=== PATIENT | female | born 1940 | race Caucasian/White ===

== ENCOUNTER 2018-11-30 22:07 | Emergency (ER) | payer MEDICARE, OTHER ==
[~2018-11-30] VITALS: Ht 162.6 cm; Wt 74.4 kg
--- OUTSIDE RECORDS SUMMARY | ~2018-11-30 | XMS | Encounter Summary ---
Demographics + + + | Address | [address] | | | [place] [address] | + + + | Home Phone | | + + + | Preferred Language | Unknown | + + + | Marital Status | | + + + | Scientology Affiliation | Unknown | + + + | Race | Unknown | + + + | Ethnic Group | Unknown | + + + Author + + + | Author | [facility] | | | and [place] | + + + | Organization | [facility] | | | and [place] | + + + | Address | Unknown | + + + | Phone | Unavailable | + + + Support + + +---------+ + | Name | Relationship | Address | Phone | + + +---------+ + | Noman Villeda | SATHISH | Unknown | | + + +---------+ + Care Team Providers + +------+ + | Care Pockets And Pieces Necktie Operator Name | Role | Phone | + +------+ + | Christopher Benz DO | PCP | | + +------+ + Reason for Visit Auth/Cert +--------+--------+ + + + + | Status | Reason | Specialty | Diagnoses / | Referred By | Referred To | | | | | Procedures | Contact | Contact | +--------+--------+ + + + + | | | | Diagnoses | | Noris | | | | | Combined | | Thai | | | | | forms of | | MD Evan | | | | | age-related | | [address] | | | | | cataract of | | [place] | | | | | right eye | | [place] | | | | | Combined | | [id number] Phone: | | | | | forms of | | [phone] | | | | | age-related | | Fax: | | | | | cataract of | | [phone] | | | | | right eye | | | | | | | [[id number]] | | | | | | | Procedures | | | | | | | [place] [facility] | | | | | | | CATARACT | | | | | | | EXTRACAP,INS | | | | | | | ERT LENS | | | | | | | RIGHT | | | | | | | EXTRACTION | | | | | | | CATARACT | | | | | | | WITH OR | | | | | | | WITHOUT LENS | | | | | | | IMPLANT | | | +--------+--------+ + + + + Encounter Details +--------+---------+ + + + | Date | Type | Department | Care Team | Description | +--------+---------+ + + + | 11/29/ | Surgery | [facility] | [facility] | RIGHT EXTRACTION | | 2018 | | [facility] | MD Evan [address] | CATARACT WITH LENS | | | | [address] | [place] | IMPLANT | | | | [place] | [place] [address] | | | | | [phone] | [phone] | | | | | [phone] | | | +--------+---------+ + + + Social History + + + +--------+ + | Tobacco Use | Types | Packs/Day | Years | Date | | | | | Used | | + + + +--------+ + | Former Smoker | Cigarettes | 1 | 20 | Quit: 1985 | + + + +--------+ + + +---+---+---+ | Smokeless Tobacco: | | | | | Never Used | | | | + +---+---+---+ + + +---------+ + | Alcohol Use | Drinks/We | oz/Week | Comments | | | ek | | | + + +---------+ + | Yes | 5 | 3.0 | | | | Glasses | | | | | of wine | | | + + +---------+ + + + + | Sex Assigned at | Date Recorded | | | | + + + | Not on file | | + + + + + + + | Job Start Date | Occupation | Industry | + + + + | Not on file | Not on file | Not on file | + + + + + + + + | Travel History | Travel Start | Travel End | + + + + + + | No recent travel history available. | + + documented as of this encounter Last Filed Vital Signs + + + + | Vital Sign | Reading | Time Taken | + + + + | Blood Pressure | 136/70 | 11/29/2018 1053 PDT | + + + + | Pulse | 68 | 11/29/2018 1053 PDT | + + + + | Temperature | 36.5 C (97.7 F) | 11/29/2018 1038 PDT | + + + + | Respiratory Rate | 16 | 11/29/20181052 PDT | + + + + | Oxygen Saturation | 98% | 11/29/20181052 PDT | + + + + | Inhaled Oxygen | - | - | | Concentration | | | + + + + | Weight | 71.1 kg (156 lb 12 | 11/29/2018933 PDT | | | oz) | | + + + + | Height | 162.6 cm (5' 4") | 11/29/2018933 PDT | + + + + | Body Mass Index | 26.91 | 11/29/2018933 PDT | + + + + documented in this encounter Discharge Instructions Instructions Christi Becerra RN - 11/29/2018FOLLOWING SURGERY: Wear the patch and shield until you get home or until your first post-op appointment, if same day. You may then discard the patch, but continue to wear the eye shield as noted joyce oh. Do not drive for at least 24 hours (longer if vision isn't clear enough to be safe) If prescribed the following eyedrops to use after surgery, then use as follows: Prednisolone acetate 1% - Shake well before using. Place 1 drop in your surgery ey e 4 times daily and continue for 1 month after surgery. Ofloxacin 0.3% - Place 1 drop in your surgery eye 4 times daily and continue for 1 week after surgery. Close your eye for 3-5 minutes after each eye drop. If your surgery eye has a dry, irritated, or "foreign body" sensation, you may use cold compresses or preservative free artificial tears (in individual vials) as needed. Drink water to stay well-hydrated and to promote healing. Most people need 8 glasses of water daily. Use your preferred non-prescription pain medicine as needed for mild discomfort. You will have appointments with your eye doctor as scheduled in future weeks/months. Darlene ng any eye drops you are taking to your first post-op appointment. THE FIRST DAYS AFTER SURGERY: The first few days are the most important after eye surgery t o be sure the eye heals well. Listed below are some things you should do or avoid doing: You may bend over, sleep on either side, read, go out to dinner, and resume most of your normal activities. Walking and gentle exercises are OK. Avoid strenuous activity for the first 3 days. Keep your eye clean with gentle lid scrubs and avoid wearing makeup for 3 days. Wear the eye shield for the first 3-4 nights to keep from bumping the eye while you are sleeping. Do not rub your eye. If you have an urge to rub your eye, wear the eye shield and ken nue using it when sleeping for even the first week after surgery. Avoid dry, daysi or dirty environments for at least 3 days. You may shower, but keep you eye dry for 3 days. Avoid dunking your head under water. Avoid splashing your face or dunking your head under water for 3 days. You may shower, k eeping your eye dry. No swimming, water sports, Jacuzzi, spa, or pool for 1 week. EXPECTATIONS: You may experience strange sensations after surgery, such as numbness, halos around lights, blurred and/or double vision. These usually resolve in 2-6 hours. Your visi on will improve over time as your eye heals, but may fluctuate over the first few weeks. Re dness will usually be gone within a few weeks. A mild dry eye sensation may persist for jose manuel e months. IMPORTANT! If you have the following symptoms, immediately call your eye doctor or [facility] at (dial "9" after hours or on weekends): Bleeding or discharge from the eye. Vision suddenly becomes worse. Huge increase in floaters. Flashing lights or a curtain over part of or all of your vision. Severe pain not relieved by the pain reliever you've been instructed to take. Nausea, vomiting, chills, or fever over 100.4. documented in this encounter Medications at Time of Discharge + + + +---------+--------+ + | Medication | Sig | Dispensed | Refills | Start | End Date | | | | | | Date | | + + + +---------+--------+ + | AMLODIPINE | Take 5 mg by mouth | | 0 | | | | BESYLATE PO | nightly. | | | | | + + + +---------+--------+ + | ATORVASTATIN | Take 10 mg by mouth | | 0 | | | | CALCIUM PO | Daily. | | | | | + + + +---------+--------+ + | calcium, as | Take 600 mg by mouth | | 0 | | | | carbonate, | daily (with | | | | | | (CALTRATE) 600 mg | breakfast). | | | | | | tablet | | | | | | + + + +---------+--------+ + | cetirizine | Take 10 mg by mouth | | 0 | | | | (ZYRTEC) 10 mg | Daily. | | | | | | tablet | | | | | | + + + +---------+--------+ + | Cholecalciferol | Take 4,000 Units by | | 0 | | | | (VITAMIN D PO) | mouth Daily. | | | | | + + + +---------+--------+ + | Denosumab (PROLIA | Inject under the | | 0 | | | | SC) | skin. | | | | | + + + +---------+--------+ + | IP PANEL | Take 2 tablets by | | 0 | | | | LISINOPRIL 20 MG | mouth Daily. | | | | | | PLUS HCTZ 12.5MG | | | | | | + + + +---------+--------+ + | METFORMIN HCL PO | Take 1,000 mg by | | 0 | | | | | mouth 2 times daily. | | | | | + + + +---------+--------+ + | Multiple | Take 1 tablet by | | 0 | | | | Vitamins-Minerals | mouth 2 times daily. | | | | | | (PRESERVISION AREDS | | | | | | | PO) | | | | | | + + + +---------+--------+ + | OMEPRAZOLE PO | Take 20 mg by mouth | | 0 | | | | | Daily. | | | | | + + + +---------+--------+ + | OXYBUTYNIN | Take 5 mg by mouth | | 0 | | | | CHLORIDE ER PO | Daily. | | | | | + + + +---------+--------+ + | Psyllium | Take 2 tablets by | | 0 | | | | (METAMUCIL PO) | mouth Daily. | | | | | + + + +---------+--------+ + | tamsulosin | Take 0.4 mg by mouth | | 0 | | | | (FLOMAX) 0.4 mg CAPS | daily (after | | | | | | | breakfast). | | | | | + + + +---------+--------+ + documented as of this encounter Plan of Treatment Not on filedocumented as of this encounter Procedures + +--------+ + + + | Procedure Name | Priori | Date/Time | Associated Diagnosis | Comments | | | ty | | | | + +--------+ + + + | EXTRACTION CATARACT | | 11/29/2018 | Combined forms of | | | WITH OR WITHOUT LENS | | 11:57 PDT | age-related cataract | | | IMPLANT | | | of right eye | | + +--------+ + + + | ECG 12 LEAD | Routin | 11/29/2018 | | Results for this | | | e | 10:40 PDT | | procedure are in the | | | | | | results section. | + +--------+ + + + | POC GLUCOSE | Routin | 11/29/2018 | | Results for this | | | e | 9:57 PDT | | procedure are in the | | | | | | results section. | + +--------+ + + + documented in this encounter Results ECG 12 lead (11/29/2018 10:40 PDT) + + + + + + | Component | Value | Ref Range | Performed | Pathologist | | | | | At | Signature | + + + + + + | VENTRICULAR | 61 | BPM | [facility] | | | RATE EKG | | | | | + + + + + + | ATRIAL RATE | 300 | BPM | [facility] | | + + + + + + | QRS | 84 | ms | [facility] | | | DURATION | | | | | + + + + + + | Q-T | 396 | ms | [facility] | | | INTERVAL | | | | | + + + + + + | Q-T | 398 | ms | [facility] | | | INTERVAL | | | | | | (CORRECTED) | | | | | + + + + + + | QRS AXIS | 43 | degrees | [facility] | | + + + + + + | T AXIS | -7 | degrees | [facility] | | + + + + + + | INTERPRETAT | Atrial flutter with | | [facility] | | | ION TEXT | variable AV | | | | | | blockNonspecific ST | | | | | | abnormalityAbnormal | | | | | | ECGNo previous ECGs | | | | | | availableConfirmed by | | | | | | SHEFALI JOY MD ([id number]) | | | | | | on 11/30/2018 6:20:36 AM | | | | + + + + + + + + | Specimen | + + | | + + + + + | Narrative | Performed At | + + + | | | + + + + +---------+ + + | Performing | Address | City/State/Zipcode | Phone Number | | Organization | | | | + +---------+ + + | [facility] | | | | + +---------+ + + POC Glucose (11/29/2018 9:57 PDT) + +---------+ + + + | Component | Value | Ref Range | Performed | Pathologist | | | | | At | Signature | + +---------+ + + + | Glucose, | 148 (H) | 70 - 109 mg/dL | [facility] | | [facility] | [facility] | [facility] - | | | | | | [facility] | | + +---------+ + + + + + | Specimen | + + | Blood | + + + + + + + | Performing | Address | City/State/Zipcode | Phone Number | | Organization | | | | + + + + + | [facility] | [address] | [place] | [phone] | | [facility] | | [address] | | | - LABORATORY | | | | + + + + + documented in this encounter Visit Diagnoses + + | Diagnosis | + + | Combined forms of age-related cataract of right eye Other and combined forms of | | senile cataract | + + documented in this encounter Administered Medications + +--------+---------+------+------+------+ | Medication Order | MAR | Action | Dose | Rate | Site | | | Action | Date | | | | + +--------+---------+------+------+------+ + +---+ | albuterol 2.5 mg/3 mL nebulizer | | | solution 2.5 mg 2.5 mg, | | | Nebulization, ONCE PRN, Wheezing, | | | Starting 11/29/18 at 0934, | | | For 1 dose, RT will administer., | | | Pre-op | | + +---+ | | | + +---+ | albuterol 2.5 mg/3 mL nebulizer | | | solution 2.5 mg 2.5 mg, | | | Nebulization, ONCE PRN, Wheezing, | | | Starting Tue11/29/18 at 1049, | | | For 1 dose, Notify anesthesia if | | | patient is wheezing and does not | | | have a history of asthma or COPD | | | or current smoking., | | | Recovery/Phase I | | + +---+ | | | + +---+ | albuterol 2.5 mg/3 mL nebulizer | | | solution 2.5 mg 2.5 mg, | | | Nebulization, ONCE PRN, Wheezing, | | | Starting Tue11/29/18 at 1049, | | | For 1 dose, Notify anesthesia if | | | patient is wheezing and does not | | | have a history of asthma or COPD | | | or current smoking., | | | Recovery/Phase I | | + +---+ | | | + +---+ + +-------+ + +---+ + | balanced salts sterile | Given | 11/30/19 | 1 | | Surgical | | ophthalmic irrigation solution | | 19 10:27 | Applicat | | Site | | PRN, Starting Tue11/29/18 at | | PDT | ion | | | | 1027, Intra-op | | | | | | + +-------+ + +---+ + +---+---+ | | | +---+---+ + +-------+ +-------+---+ + | BSS 2.25mL + lidocaine PF 2% | Given | 11/30/19 | 4 mLs | | Surgical | | 0.75mL + EPINEPHrine (1:1000) 1mL | | 19 10:27 | | | Site | | one step ophthalmic solution | | PDT | | | | | PRN, Starting Tue11/29/18 at | | | | | | | 1027, Intra-op | | | | | | + +-------+ +-------+---+ + + +---+ | | | + +---+ | dextrose 50% injection 12.5-25 | | | g 12.5-25 g, Intravenous, EVERY | | | 15 MIN PRN, Low Blood Sugar, Give | | | 12.5g (25 mL) IV if blood | | | glucose 50-69 mg/dL. Give 25g | | | (50 mL) IV if blood glucose < 50, | | | Starting 11/29/18 at 0934, | | | Repeat in 15 min if blood glucose | | | remains < 70 mg/dL. Repeat | | | blood glucose in 30 min once | | | blood glucose > 70., Pre-op | | + +---+ | | | + +---+ | dextrose 50% injection 12.5-25 | | | g 12.5-25 g, Intravenous, EVERY | | | 15 MIN PRN, Low Blood Sugar, For | | | hypoglycemia. Give 12.5g (25ml) | | | IV if blood glucose 50-69 | | | mg/dL. Give 25g (50ml) IV if | | | blood glucose < 50, Starting Wed | | | 11/29/18 at 1049, Give over 2 min. | | | Repeat in 15 min if blood | | | glucose remains < 70 mg/dL. | | | Repeat blood glucose in 30 min | | | once blood glucose > 70., | | | Recovery/Phase I | | + +---+ | | | + +---+ | dextrose 50% injection 12.5-25 | | | g 12.5-25 g, Intravenous, EVERY | | | 15 MIN PRN, Low Blood Sugar, For | | | hypoglycemia. Give 12.5g (25ml) | | | IV if blood glucose 50-69 | | | mg/dL. Give 25g (50ml) IV if | | | blood glucose < 50, Starting Wed | | | 11/29/18 at 1049, Give over 2 min. | | | Repeat in 15 min if blood | | | glucose remains < 70 mg/dL. | | | Repeat blood glucose in 30 min | | | once blood glucose > 70., | | | Recovery/Phase I | | + +---+ | | | + +---+ | fentaNYL (PF) injection 25-50 | | | mcg 25-50 mcg, Intravenous, | | | EVERY 15 MIN PRN, Pain, Give on | | | direction of physician, Starting | | | 11/29/18 at 0934, For 4 doses, | | | Max total dose 100 mcg., Pre-op | | + +---+ | | | + +---+ | fentaNYL (PF) injection 25-50 | | | mcg 25-50 mcg, Intravenous, | | | EVERY 5 MIN PRN, Pain, Starting | | | 11/29/18 at 1049, Maximum | | | total dose 250 mcg. PACU IV | | | Narcotic Priority: Only use | | | fentanyl for immediate post-op | | | pain (one dose) or breakthrough | | | pain when any other IV narcotics | | | ordered have been ineffective (if | | | ordered). If both morphine and | | | hydromorphone are ordered, use | | | morphine first, and use | | | hydromorphone if morphine | | | ineffective., Recovery/Phase I | | + +---+ | | | + +---+ | fentaNYL (PF) injection 25-50 | | | mcg 25-50 mcg, Intravenous, | | | EVERY 5 MIN PRN, Pain, Starting | | | Tue11/29/18 at 1049, Maximum | | | total dose 250 mcg. PACU IV | | | Narcotic Priority: Only use | | | fentanyl for immediate post-op | | | pain (one dose) or breakthrough | | | pain when any other IV narcotics | | | ordered have been ineffective (if | | | ordered). If both morphine and | | | hydromorphone are ordered, use | | | morphine first, and use | | | hydromorphone if morphine | | | ineffective., Recovery/Phase I | | + +---+ | | | + +---+ + +-------+ +-------+---+ + | hyaluronate & chondroitin | Given | 11/30/19 | 1 kit | | Surgical | | hyaluronate (DUOVISC) intraocular | | 19 10:27 | | | Site | | kit PRN, Starting 11/29/18 | | PDT | | | | | at 1027, Intra-op | | | | | | + +-------+ +-------+---+ + + +---+ | | | + +---+ | HYDROmorphone (DILAUDID) | | | injection 0.2-0.5 mg 0.2-0.5 mg, | | | Intravenous, EVERY 5 MIN PRN, | | | Pain, Starting Tue11/29/18 at | | | 1049, Maximum total dose 4 mg. | | | PACU IV Narcotic Priority: Only | | | use fentanyl for immediate | | | post-op pain (one dose) or | | | breakthrough pain when any other | | | IV narcotics ordered have been | | | ineffective (if ordered). If | | | both morphine and hydromorphone | | | are ordered, use morphine first, | | | and use hydromorphone if morphine | | | ineffective., Recovery/Phase I | | + +---+ | | | + +---+ | HYDROmorphone (DILAUDID) | | | injection 0.2-0.5 mg 0.2-0.5 mg, | | | Intravenous, EVERY 5 MIN PRN, | | | Pain, Starting Tue11/29/18 at | | | 1049, Maximum total dose 4 mg. | | | PACU IV Narcotic Priority: Only | | | use fentanyl for immediate | | | post-op pain (one dose) or | | | breakthrough pain when any other | | | IV narcotics ordered have been | | | ineffective (if ordered). If | | | both morphine and hydromorphone | | | are ordered, use morphine first, | | | and use hydromorphone if morphine | | | ineffective., Recovery/Phase I | | + +---+ | | | + +---+ + +---------+ +---+-------+---+ | lactated ringers (LR) infusion | New Bag | 11/30/19 | | 100 | | | at 10-100 mL/hr, Intravenous, | | 19 9:58 | | mL/hr | | | CONTINUOUS, Starting 11/29/18 | | PDT | | | | | at 1000, TKO., Pre-op | | | | | | + +---------+ +---+-------+---+ +---+---+ | | | +---+---+ + +-------+ +--------+---+---+ | lidocaine (AKTEN) 3.5% | Given | 11/30/19 | 1 drop | | | | ophthalmic gel 1 drop 1 drop, | | 19 9:52 | | | | | Right Eye, Prior to Incision, | | PDT | | | | | Starting 11/29/18 at 0934, For | | | | | | | 2 doses, Begin after | | | | | | | proparacaine. Begin 10 minutes | | | | | | | prior to leaving SDS for | | | | | | | operating room. Repeat jelly just | | | | | | | prior to leaving SDS and Q10 | | | | | | | minutes until in the operating | | | | | | | room. Keep eye closed after | | | | | | | placing medication., Pre-op | | | | | | + +-------+ +--------+---+---+ +---+---+ | | | +---+---+ + +-------+ + +---+ + | lidocaine (XYLOCAINE) 2% jelly | Given | 11/30/19 | 1 | | Surgical | | (uro-jet) PRN, Starting Wed | | 19 10:26 | Applicat | | Site | | 11/29/18 at 1026, Intra-op | | PDT | ion | | | + +-------+ + +---+ + + +---+ | | | + +---+ | meperidine (DEMEROL) injection | | | 12.5-25 mg 12.5-25 mg, | | | Intravenous, PRN, Shivering, | | | Starting 11/29/18 at 1049, For | | | 2 doses, May Repeat once in 5 | | | min., Recovery/Phase I | | + +---+ | | | + +---+ | meperidine (DEMEROL) injection | | | 12.5-25 mg 12.5-25 mg, | | | Intravenous, PRN, Shivering, | | | Starting 11/29/18 at 1049, For | | | 2 doses, May Repeat once in 5 | | | min., Recovery/Phase I | | + +---+ | | | + +---+ | midazolam (VERSED) 1 mg/mL | | | injection 1 mg 1 mg, | | | Intravenous, PRN, Anxiety, May | | | repeat Q 5 minutes prn, Starting | | | 11/29/18 at 0934, For 2 doses, | | | May repeat once in 5min. Hold | | | anxiolytic until after anesthesia | | | and surgical consent is | | | obtained, Pre-op | | + +---+ | | | + +---+ + +-------+ +--------+---+ + | moxifloxacin (VIGAMOX) 0.5 % | Given | 11/30/19 | 0.5 mg | | [facility] | | intracameral injection PRN, | | 19 10:28 | | | t | | Starting Tue11/29/18 at 1028, | | PDT | | | | | Intra-op | | | | | | + +-------+ +--------+---+ + + +---+ | | | + +---+ | ondansetron (ZOFRAN) injection | | | 4 mg 4 mg, Intravenous, ONCE | | | PRN, Nausea, Starting Tue11/29/18 | | | at 0934, For 1 dose, Pre-op | | + +---+ | | | + +---+ | ondansetron (ZOFRAN) injection | | | 4 mg 4 mg, Intravenous, ONCE | | | PRN, Nausea, Starting Tue11/29/18 | | | at 1049, For 1 dose, | | | Recovery/Phase I | | + +---+ | | | + +---+ | ondansetron (ZOFRAN) injection | | | 4 mg 4 mg, Intravenous, ONCE | | | PRN, Nausea, Starting Tue11/29/18 | | | at 1049, For 1 dose, | | | Recovery/Phase I | | + +---+ | | | + +---+ + +-------+ +--------+---+---+ | phenylephrine (GALLO-SYNEPHRINE) | Given | 11/30/19 | 1 drop | | | | 2.5% ophthalmic solution 1 drop | | 19 9:40 | | | | | 1 drop, Right Eye, Prior to | | PDT | | | | | Incision, Starting Tue11/29/18 at | | | | | | | 0934, For 3 doses, Begin after | | | | | | | proparacaine. 1 drop every 10 | | | | | | | minutes for 3 doses. (May | | | | | | | alternate every 5 minutes with | | | | | | | tropicamide) Remind patient to | | | | | | | keep eye closed after placing | | | | | | | each drop., Pre-op | | | | | | + +-------+ +--------+---+---+ +-------+ +--------+---+---+ | Given | 11/30/19 | 1 drop | | | | | 19 9:35 | | | | | | PDT | | | | +-------+ +--------+---+---+ +---+---+ | | | +---+---+ + +-------+ +---------+---+ + | pilocarpine (ISOPTO CARPINE) 1% | Given | 11/30/19 | 2 drops | | Surgical | | ophthalmic solution PRN, | | 19 10:28 | | | Site | | Starting 11/29/18 at 1028, | | PDT | | | | | Intra-op | | | | | | + +-------+ +---------+---+ + +---+---+ | | | +---+---+ + +-------+ +---------+---+ + | povidone-iodine 5 % ophthalmic | Given | 11/30/19 | 2 drops | | Surgical | | solution PRN, Starting Wed | | 19 10:19 | | | Site | | 11/29/18 at 1019, Intra-op | | PDT | | | | + +-------+ +---------+---+ + +---+---+ | | | +---+---+ + +-------+ +--------+---+---+ | proparacaine (ALCAINE) 0.5% | Given | 11/30/19 | 1 drop | | | | ophthalmic solution 1 drop 1 | | 19 9:35 | | | | | drop, Right Eye, Prior to | | PDT | | | | | Incision, Starting 11/29/18 at | | | | | | | 0934, For 1 dose, After placing | | | | | | | anesthetic, keep eye closed | | | | | | | except for when placing | | | | | | | additional medications. All other | | | | | | | drops/gel should follow this | | | | | | | drop., Pre-op | | | | | | + +-------+ +--------+---+---+ +---+---+ | | | +---+---+ + +-------+ +--------+---+ + | triamcinolone acetonide | Given | 11/30/19 | 2.5 mg | | Surgical | | (KENALOG-10) 10 mg/mL injection | | 19 10:28 | | | Site | | PRN, Starting 11/29/18 at | | PDT | | | | | 1028, Intra-op | | | | | | + +-------+ +--------+---+ + +---+---+ | | | +---+---+ + +-------+ +--------+---+---+ | tropicamide (MYDRIACYL) 1% | Given | 11/30/19 | 1 drop | | | | ophthalmic solution 1 drop 1 | | 19 9:40 | | | | | drop, Right Eye, Prior to | | PDT | | | | | Incision, Starting 11/29/18 at | | | | | | | 0934, For 3 doses, Begin after | | | | | | | proparacaine. 1 drop every 10 | | | | | | | minutes for 3 doses. (May | | | | | | | alternate every 5 minutes with | | | | | | | phenylephrine) Remind patient to | | | | | | | keep eye closed after placing | | | | | | | each drop., Pre-op | | | | | | + +-------+ +--------+---+---+ +-------+ +--------+---+---+ | Given | 11/30/19 | 1 drop | | | | | 19 9:35 | | | | | | PDT | | | | +-------+ +--------+---+---+ +---+---+ | | | +---+---+ documented in this encounter
--- OUTSIDE RECORDS SUMMARY | ~2018-11-30 | XMS | Encounter Summary ---
Demographics + + + | Address | [address] | | | [place] [address] | + + + | Home Phone | | + + + | Preferred Language | Unknown | + + + | Marital Status | | + + + | Yarsani Affiliation | Unknown | + + + | Race | Unknown | + + + | Ethnic Group | Unknown | + + + Author + + + | Author | [facility] | | | and [place] | + + + | Organization | [facility] | | | and [...] Team Providers + +------+ + | Care Options Advisor Name | Role | Phone | + [...] | | | | age-related | | [address] | | | | | cataract of | | [place] | | | | | right eye | | [place] | | | | | Combined | | [address] Phone: | | | | | forms of | | [phone] | | | | | age-related | | Fax: | | | | | cataract of | | [phone] | | | | | right eye | | | | | | | [H25.811] | | | | | | | Procedures | | | | | | | SC REMV | | | | | | [...] +--------+--------+ + + + + Encounter Details +--------+ + + + + | Date | Type | Department | Care Team | Description | +--------+ + + + + | 11/29/ | Hospital | [facility] | Thai Hamm | | | 2019 | Encounter | MED CTR OR INTRA OP | MD Evan [address] | | | | | [address] | [place] | | | | | [place] | [place] [address] | | | | | [address] | [phone] | | | | | [phone] | | | +--------+ + + + + Social History + + [...] + | Respiratory Rate | 16 | 11/29/2018 1053 PDT | + + + + | Oxygen Saturation | 98% | 11/29/2018 1053 PDT | + + [...] Discharge Instructions Instructions Christi Becerra RN - 05/15/2019FOLLOWING SURGERY: Wear the patch and shield until you get home or until your first post-op appointment, if same day. You may then discard the patch, but continue to wear the eye shield as noted [place]. Do not drive for at least [...] symptoms, immediately call your eye doctor or [facility] at (dial "9" after hours or on [...] | | | | SHEFALI JOY MD ([id number]) | | | | | | on [...] | | POC | | | [facility] | | | | | | [facility] [...] + + + + + | [facility]. | [address] | [place] | [phone] | | [facility] | | [address] | | | - LABORATORY | | | | + + + + + documented in this encounter Visit Diagnoses Not on filedocumented in this encounter Administered Medications + +--------+---------+------+------+------+ [...] Wheezing, | | | Starting 11/29/18 at 1049, | | | For 1 [...] Wheezing, | | | Starting 11/29/18 at 1049, | | | For 1 [...] | mL/hr | | | CONTINUOUS, Starting Tue11/29/18 | | PDT | | | | [...] PDT | | | | | Starting Tue11/29/18 at 0934, For | | | | [...] | | | | + +-------+ +--------+---+---+ + +---+ | | | + +---+ [...] ONCE | | | PRN, Nausea, Starting 11/29/18 | | | at 0934, For 1 dose, Pre-op | | + +---+ | | | + +---+ | ondansetron (ZOFRAN) injection | | | 4 mg 4 mg, Intravenous, ONCE | | | PRN, Nausea, Starting 11/29/18 | | | at 1049, For 1 dose, | | | Recovery/Phase I | | + +---+ | | | + +---+ | ondansetron (ZOFRAN) injection | | | 4 mg 4 mg, Intravenous, ONCE | | | PRN, Nausea, Starting 11/29/18 | | | at 1049, For 1 [...]
--- OUTSIDE RECORDS SUMMARY | ~2018-11-30 | XMS | Clinical Summary ---
Demographics + + + | Address | [address] | | | [place] [address] | + + + | Home Phone | | + + + | Preferred Language | Unknown | + + + | Marital Status | | + + + | Restoration Affiliation | Unknown | + + + | Race | Unknown | + + + | Ethnic Group | Unknown | + + + Author + + + | Author | [facility] | | | and [place] | + + + | Organization | [facility] | | | [...] Team Providers + +------+ + | Care Yoghurt Maker Name | Role | Phone | + +------+ + | Tuyet Christopher | PP | | + +------+ + Allergies + + + + + + | Active Allergy | Reactions | Severity | Noted | Comments | | | | | Date | | + + + + + + | Ciprofloxacin | Rash | Low | 05/14/20 | | | | | | 19 | | + + + + + + | Nitrofurantoin | Rash | Low | 05/14/20 | | | | | | 19 | | + + + + + + Medications + + + +---------+------+------+-------+ | Medication | Sig | Dispensed | Refills | Star | End | Statu | | | | | | t | Date | s | | | | | | Date | | | + + + +---------+------+------+-------+ | OXYBUTYNIN | Take 5 mg by mouth | | 0 | | | Activ | | CHLORIDE ER PO | Daily. | | | | | e | + + + +---------+------+------+-------+ | OMEPRAZOLE PO | Take 20 mg by mouth | | 0 | | | Activ | | | Daily. | | | | | e | + + + +---------+------+------+-------+ | ATORVASTATIN | Take 10 mg by mouth | | 0 | | | Activ | | CALCIUM PO | Daily. | | | | | e | + + + +---------+------+------+-------+ | Multiple | Take 1 tablet by | | 0 | | | Activ | | Vitamins-Minerals | mouth 2 times daily. | | | | | e | | (PRESERVISION AREDS | | | | | | | | PO) | | | | | | | + + + +---------+------+------+-------+ | METFORMIN HCL PO | Take 1,000 mg by | | 0 | | | Activ | | | mouth 2 times daily. | | | | | e | + + + +---------+------+------+-------+ | Cholecalciferol | Take 4,000 Units by | | 0 | | | Activ | | (VITAMIN D PO) | mouth Daily. | | | | | e | + + + +---------+------+------+-------+ | AMLODIPINE | Take 5 mg by mouth | | 0 | | | Activ | | BESYLATE PO | nightly. | | | | | e | + + + +---------+------+------+-------+ | Psyllium | Take 2 tablets by | | 0 | | | Activ | | (METAMUCIL PO) | mouth Daily. | | | | | e | + + + +---------+------+------+-------+ | calcium, as | Take 600 mg by mouth | | 0 | | | Activ | | carbonate, | daily (with | | | | | e | | (CALTRATE) 600 mg | breakfast). | | | | | | | tablet | | | | | | | + + + +---------+------+------+-------+ | cetirizine | Take 10 mg by mouth | | 0 | | | Activ | | (ZYRTEC) 10 mg | Daily. | | | | | e | | tablet | | | | | | | + + + +---------+------+------+-------+ | tamsulosin | Take 0.4 mg by mouth | | 0 | | | Activ | | (FLOMAX) 0.4 mg CAPS | daily (after | | | | | e | | | breakfast). | | | | | | + + + +---------+------+------+-------+ | IP PANEL | Take 2 tablets by | | 0 | | | Activ | | LISINOPRIL 20 MG | mouth Daily. | | | | | e | | PLUS HCTZ 12.5MG | | | | | | | + + + +---------+------+------+-------+ | Denosumab (PROLIA | Inject under the | | 0 | | | Activ | | SC) | skin. | | | | | e | + + + +---------+------+------+-------+ | LISINOPRIL PO | Take by mouth. | | 0 | | 05/1 | Disco | | | | | | | 4/20 | ntinu | | | | | | | 19 | ed | + + + +---------+------+------+-------+ Active Problems + + + | Problem | Noted Date | + + + | Atrial flutter | 11/29/2018 | + + + | Essential hypertension | 11/29/2018 | + + + | Sleep apnea | 11/29/2018 | + + + + + | Overview: uses CPAP | + + Encounters +--------+ + + + + | Date | Type | Specialty | Care Team | Description | +--------+ + + + + | 11/29/ | Surgery | | Thai Hamm | RIGHT EXTRACTION | | 2018 | | | MD Evan | CATARACT WITH LENS | | | | | | IMPLANT | +--------+ + + + + | 11/29/ | Anesthesia | | Misbah Waters | | | 2018 | Event | | MD Nataly | | +--------+ + + + + | 11/29/ | Hospital | | Thai Hamm | | | 2019 | Encounter | | MD Evan | | +--------+ + + + + from Last 3 Months Social History + + + +--------+ + [...] recent travel history available. | + + Last Filed Vital Signs + + + + | Vital Sign | Reading | Time Taken | + + + + | Blood Pressure | 136/70 | 11/29/20181052 PDT | + + + + | Pulse | 68 | 11/29/20181052 PDT | + + + [...] 11/29/2018933 PDT | + + + + Plan of Treatment + + + + + | Health Maintenance | Due Date | Last Done | Comments | + + + + + | Vaccine: | | | | | Dtap/Tdap/Td (1 - | 2 | | | | Tdap) | | | | + + + + + | Vaccine: Zoster (1 | | | | | of 2) | 3 | | | + + + + + | Vaccine: | | | | | Pneumococcal 65+ | 8 | | | | Low/Medium Risk (1 | | | | | of 2 - PCV13) | | | | + + + + + | Vaccine: Influenza | | | | | (Season Ended) | 9 | | | + + + + + Implants + +--------+--------+ +--------+--------+--------+ | Implanted | Type | Area | Manufacture | Device | Shelf | Model | | | | | r | | Expira | / | | | | | | Identi | tion | Serial | | | | | | fier | Date | / Lot | + +--------+--------+ +--------+--------+--------+ | Lens Tecnis Preloaded Pcb | Generi | Right: | PINON | | 10/25/ | [id number] | | 22.0 - [id number]: | c | Eye | MEDICAL | | 2021 | 0 | | Qty: 1 on 11/29/2018 by | | | [employer] - | | | [id number] | | Thai Hamm MD | | | [place] | | | [address] | | | | | | | | /N/A | + +--------+--------+ +--------+--------+--------+ Procedures + +--------+ + + + | [...] section. | + +--------+ + + + from Last 3 Months Results ECG 12 lead (11/29/2018 10:40 PDT) [...] | | | | SHEFALI JOY MD ([id number]) | | | | | | on [...] (H) | 70 - 109 mg/dL | [facility] | | | POC | | | [facility] | | | | | | MEDICAL [...] | + + + + + | [facility] | [address] | [place] | [phone] | | [facility] | | [address] | | | - LABORATORY | | | | + + + + + from Last 3 Months Insurance + +--------+ +--------+ +---------+--------+ | Payer | Benefi | Subscriber | Effect | Phone | Address | Type | | | t Plan | ID | carol | | | | | | / | | Dates | | | | | | Group | | | | | | + +--------+ +--------+ +---------+--------+ | MEDICARE | MEDICA | [id number] | 10/17/19 | [phone] | | Medica | | | RE | | 08-Pre | 5 | | re | | | PART A | | sent | | | | | | AND B | | | | | | + +--------+ +--------+ +---------+--------+ | [employer] | MUTUAL | [id number] | 11/16/19 | [phone] | | Indemn | | | OF | | 14-Pre | 0 | | ity | | | [place] | | sent | | | | + +--------+ +--------+ +---------+--------+ + +--------+ +--------+ + + | Guarantor Name | Accoun | Relation to | Date | Phone | Billing Address | | | t Type | Patient | of | | | | | | | | | | + +--------+ +--------+ + + | Liz Villeda | Person | Self [birth year] | [address] | | | al/Fam | | 1941 | [phone] | [place] [address] | | | ana | | | 0 (Home) | | + +--------+ +--------+ + + Advance Directives Patient has advance care planning documents, and code status on file. For more information, please contact:[facility] and [place] [id number] + + + + + | Code Status | Date | Date | Comments | | | Activated | Inactivated | | + + + + + | Full Code | 11/29/2018 | 11/29/2018 | | | | 10:49 | 13:10 | | + + + + +
--- OUTSIDE RECORDS SUMMARY | ~2018-11-30 | XMS | Clinical Summary ---
Demographics + + + | Address | [address] | | | [place] [address] | + + + | Home Phone | | + + + | Preferred Language | Unknown | + + + | Marital Status | Single | + + + | Nondenominational Affiliation | Unknown | + + + | Race | Unknown | + + + | Ethnic Group | Other Race | + + + Author + + + | Author | [facility] | + + + | Organization | [facility] | + + + | Address | Unknown | + + + | Phone | Unavailable | + + + Care Team Providers + +------+ + | Care J2Ee Architect Name | Role | Phone | + +------+ + PP | Unavailable | + +------+ + Source Comments BRITTNI is fully live on both [facility] and [facility] InPatient.[facility] Allergies Not on File Medications Not on file Active Problems Not on file Social History + +-------+ +--------+------+ | Tobacco Use | Types | Packs/Day | Years | Date | | | | | Used | | + +-------+ +--------+------+ | Never Assessed | | | | | + +-------+ +--------+------+ + + + | Sex Assigned at [...] recent travel history available. | + + Plan of Treatment + + + + + | Health Maintenance | Due Date | Last Done | Comments | + + + + + | Pneumococcal (Adult) | | | | | (1 of 2 - PCV13) | 8 | | | + + + + + | Influenza (Flu) | | | | | vaccination (Season | 9 | | | | Ended) | | | | + + + + + Results Not on filefrom Last 3 Months Insurance + +--------+ +--------+ + +--------+ | Payer | Benefi | Subscriber | Effect | Phone | Address | Type | | | t Plan | ID | carol | | | | | | / | | Dates | | | | | | Group | | | | | | + +--------+ +--------+ + +--------+ | MEDICARE | MEDICA | xxxxxxxxxx | 10/17/19 | [phone] | [address] | Medica | | | RE A & | | 08-Pre | 1 | [id number] | re | | | B | | sent | | [place] | | | | | | | | [address] | | + +--------+ +--------+ + +--------+ | COMMERCIAL GROUP | COMMER | [id number] | 10/17/19 | | | Indemn | | | CIAL | | 08-Pre | | | ity | | | GROUP | | sent | | | | + +--------+ +--------+ + +--------+ + +--------+ +--------+ + + | Guarantor Name | Accoun | Relation to | Date | Phone | Billing Address | | | t Type | Patient | of | | | | | | | | | | + +--------+ +--------+ + + | Liz Villeda | Person | Self | [birth year] | | [address] | | | al/Fam | | 1941 | [phone] | [place] [address] | | | ana | | | 0 (Home) | | + +--------+ +--------+ + +"
--- OUTSIDE RECORDS SUMMARY | ~2018-11-30 | XMS | Encounter Summary ---
Demographics + + + | Address | [address] | | | [place] [address] | + + + | Home Phone | | + + + | Preferred Language | Unknown | + + + | Marital Status | Single | + + + | Mandaen Affiliation | Unknown | + + + | Race | Unknown | + + + | Ethnic Group | Other Race | + + + Author + + + | Author | [facility] [facility] | + + + | Organization | [facility] | + + + | Address | Unknown | + + + | Phone | Unavailable | + + + Care Team Providers + +------+ + | Care Payroll Auditor Name | Role | Phone | + +------+ + PCP | Unavailable | + +------+ + Encounter Details +--------+ + + + + | Date | Type | Department | Care Team | Description | +--------+ + + + + | 09/06/ | Results | Registration [id number] | Other Faculty | | | 2008 | Only | [address] | [phone] | | | | | [facility] Mailcode: | | | | | | [address] [place], [place] | | | | | | [address] | | | | | | [phone] | | | +--------+ + + + + Social History + +-------+ +--------+------+ | Tobacco [...] + + documented as of this encounter Plan of Treatment Not on filedocumented as of this encounter Procedures + +--------+ + + + | Procedure Name | Priori | Date/Time | Associated Diagnosis | Comments | | | ty | | | | + +--------+ + + + | DERMATOPATHOLOGY(WET | Routin | 09/06/2008 | | Results for this | | [facility]) | e | | | procedure are in the | | | | | | results section. | + +--------+ + + + documented in this encounter Results DERMATOPATHOLOGY(WET [facility]) (09/06/2008) + + + + + + | Component | Value | Ref Range | Performed | Pathologist | | | | | At | Signature | + + + + + + | DERMATOPATH | THIS IS AN ADDENDUM | | | | | OLOGY(WET | REPORT SOURCE OF | | | | | MNT) | SPECIMEN:A FIRST TISSUE | | | | | | LEVEL | | | | | | IV [id number] | | | | | | DESCRIPTION:4mm, rt. | | | | | | knee; new irreg. shaped | | | | | | macule; melanocytic | | | | | | nevus; R/O | | | | | | melanoma.GROSS | | | | | | DESCRIPTION:The specimen | | | | | | is received in | | | | | | formalin, labeled rt. | | | | | | knee, with the | | | | | | patient'sname and | | | | | | consists of a pale hanson | | | | | | and hanson punch biopsy | | | | | | measuring 0.4 cm | | | | | | indiameter by 0.2 | | | | | | cm. The specimen is | | | | | | bisected and entirely | | | | | | submitted in | | | | | | onecassette.MICROSCOPIC | | | | | | DESCRIPTION:There is a | | | | | | moderately broad, mostly | | | | | | well circumscribed, not | | | | | | entirelysymmetric, | | | | | | compound melanocytic | | | | | | neoplasm composed of | | | | | | nests as well assingle | | | | | | melanocytes distributed | | | | | | along and focally above | | | | | | the basal layer.Most of | | | | | | the melanocytic nuclei | | | | | | are moderately large, | | | | | | some are | | | | | | mildlypleomorphic, and | | | | | | most of the cells | | | | | | contain eosinophilic, | | | | | | somewhat | | | | | | glassycytoplasm. There | | | | | | are a few small | | | | | | collections of nests of | | | | | | similar | | | | | | appearingmelanocytes in | | | | | | the upper dermis where | | | | | | there is a sparse | | | | | | lymphocyticinfiltrate.DI | | | | | | AGNOSIS:MELANOCYTIC | | | | | | NEVUS, COMPOUND | | | | | | TYPE.NOTE: The | | | | | | findings are subtle in | | | | | | the initial sections; | | | | | | deeper sectionswill be | | | | | | obtained, and the | | | | | | results reported in an | | | | | | addendum. The | | | | | | nevusextends closely to | | | | | | the lateral | | | | | | margins.[facility]:emr09/11/08Ca | | | | | | se also reviewed | | | | | | by:Zhao Preciado | | | | | | Kay Shipley / | | | | | | Dermatopathologist.ADDEN | | | | | | DUM:Deeper sections show | | | | | | findings not apparent | | | | | | in the initial ones, | | | | | | with singlemelanocytes | | | | | | along and above the | | | | | | basal layer, changes of | | | | | | a COMPOUND NEVUSWITH | | | | | | UNUSUAL FEATURES, which | | | | | | extends closely to the | | | | | | lateral | | | | | | margins.Conservative | | | | | | local re-excision is | | | | | | recommended.[facility]:db09/16/08 | | | | | | Case also reviewed by | | | | | | Zhao Preciado Jr., | | | | | | MChristopherRendering | | | | | | Diagnostician: Margarito | | | | | | Ozzy | | | | | | MChristopherPathologistElectroni | | | | | | kirill Signed 09/18/2008 | | | | + + + + + + + + | Specimen | + + | Other | + + + + + | Narrative | Performed At | + + + | Ordered by Odilon Fan MD | | + + + + + + + + | Performing | Address | City/State/Zipcode | Phone Number | | Organization | | | | + + + + + | [facility] | [address] | [place] [address] | | | DERMATOPATHOLOGY | [address] | | | + + + + + documented in this encounter Visit Diagnoses Not on filedocumented in this encounter"
--- OUTSIDE RECORDS SUMMARY | ~2018-11-30 | XMS | Encounter Summary ---
Demographics + + + | Address | [address] | | | [place] [address] | + + + | Home Phone | | + + + | Preferred Language | Unknown | + + + | Marital Status | | + + + | Mandaen Affiliation | Unknown | + + + | Race | Unknown | + + + | Ethnic Group | Unknown | + + + Author + + + | Author | [facility] | | | and [place] | + + + | Organization | [facility] | | | and [...] Team Providers + +------+ + | Care Family Day Care Worker Name | Role | Phone | + [...] | | | | age-related | | [address] | | | | | cataract of | | [place] | | | | | right eye | | [place] | | | | | Combined | | [address] Phone: | | | | | forms of | | [phone] | | | | | age-related | | Fax: | | | | | cataract of | | [phone] | | | | | right eye | | | | | | | [H25.811] | | | | | | | Procedures | | | | | | | ME REMV | | | | | | [...] LENS | | | | [address] | [place] | IMPLANT | | | | [place] | [place] [address] | | | | | [address] | [phone] | | | | | [phone] | | | +--------+---------+ + + + [...] symptoms, immediately call your eye doctor or [facility] at (dial "9" after hours or on [...] | | | | SHEFALI JOY MD ([id number]) | | | | | | on [...] [address] | [place] | [phone] | | [facility] | | [address] | | | - LABORATORY | | [...]
--- OUTSIDE RECORDS SUMMARY | ~2018-11-30 | XMS | Encounter Summary ---
Demographics + + + | Address | [address] | | | [place] [address] | + + + | Home Phone | | + + + | Preferred Language | Unknown | + + + | Marital Status | Single | + + + | Buddhist Affiliation | Unknown | + + + | Race | Unknown | + + + | Ethnic Group | Other Race | + + + Author + + + | Author | [facility] | + + + | Organization | [facility] | + + + | Address | Unknown | + + + | Phone | Unavailable | + + + Care Team Providers + +------+ + | Care Commercial Electrician Name | Role | Phone | + +------+ + PCP | Unavailable | + +------+ + Encounter Details +--------+ + + + + | Date | Type | Department | Care Team | Description | +--------+ + + + + | 10/23/ | Results | Registration 3181 | [facility] | | | 2008 | Only | [address] | [phone] | | | | | [facility] Mailcode: | | | | | | [address] [place], [place] | | | | | | [address] | | | | | | [phone] | | | +--------+ + + + [...] + + | DERMATOPATHOLOGY(WET | Routin | 10/23/2008 | | Results for this | | [facility]) | e | | | procedure are in the | | | | | | results section. | + +--------+ + + + documented in this encounter Results DERMATOPATHOLOGY(WET [facility]) (10/23/2008) + + + + + + | Component | Value | Ref Range | Performed | Pathologist | | | | | At | Signature | + + + + + + | DERMATOPATH | SOURCE OF SPECIMEN:A | | | | | OLOGY(WET | FIRST TISSUE LEVEL | | | | | MNT) | IV [id number] | | | | | | DESCRIPTION:Excision, | | | | | | rt. knee; exc. of | | | | | | melanocytic nevus with | | | | | | unusual features.GROSS | | | | | | DESCRIPTION:Rt. | | | | | | knee. The specimen is | | | | | | received in formalin, | | | | | | labeled rt. knee, with | | | | | | thepatient's name and | | | | | | consists of a hanson skin | | | | | | ellipse measuring 1.6 x | | | | | | 0.8 x 0.5cm. 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 arranged | | | | | | parallel to the skin | | | | | | surface with vertically | | | | | | orientedblood | | | | | | vessels.DIAGNOSIS:SCAR.N | | | | | | OTE: There is no | | | | | | evidence of a residual | | | | | | nevus in the right knee | | | | | | excision;it appears to | | | | | | be completely and | | | | | | adequately | | | | | | excised.CRW:db10/30/08Ren | | | | | | dering | | | | | | Diagnostician: Thalia | | | | | | n Alena Preciado Jr., | | | | | | Noheliai | | | | | | kirill Signed 10/30/2008 | | | | + + + [...] | + + + + + | [facility] | Mailcode [address], [address] | [place] [address] | | | DERMATOPATHOLOGY | [address] | | | + + + + + documented in this encounter Visit Diagnoses Not on filedocumented in this encounter"
--- OUTSIDE RECORDS SUMMARY | ~2018-11-30 | XMS | Clinical Summary ---
Demographics + + + | Address | [address] | | | [place] [address] | + + + | Home Phone | | + + + | Preferred Language | Unknown | + + + | Marital Status | Single | + + + | Zoroastrian Affiliation | Unknown | + + + | Race | Unknown | + + + | Ethnic Group | Other Race | + + + Author + + + | Author | [facility] | + + + | Organization | [facility] | + + + | Address | Unknown | + + + | Phone | Unavailable | + + + Care Team Providers + +------+ + | Care Account Supervisor Name | Role | Phone | + +------+ + PP | Unavailable | + +------+ + Source Comments BRITTNI is fully live on both [facility] Ambulatory and [facility] InPatient.[facility] Allergies Not on File Medications Not on [...] | | | | | | | [address] | | + +--------+ +--------+ + +--------+ [...] | 1941 | [phone] | [place] [address] | | | ana | | | 0 (Home) | | + +--------+ +--------+ + +"
--- OUTSIDE RECORDS SUMMARY | ~2018-11-30 | XMS | Encounter Summary ---
Demographics + + + | Address | [address] | | | [place] [address] | + + + | Home Phone | | + + + | Preferred Language | Unknown | + + + | Marital Status | | + + + | Restorationism Affiliation | Unknown | + + + | Race | Unknown | + + + | Ethnic Group | Unknown | + + + Author + + + | Author | [facility] | | | and [place] | + + + | Organization | [facility] | | | [...] Team Providers + +------+ + | Care Veterinary Milk Specialist Name | Role | Phone | + [...] | | | | age-related | | [address] | | | | | cataract of | | [place] | | | | | right eye | | [place] | | | | | Combined | | [address] Phone: | | | | | forms of | | [phone] | | | | | age-related | | Fax: | | | | | cataract of | | [phone] | | | | | right eye | | | | | | | [H25.811] | | | | | | | Procedures | | | | | | | [place] REMV | | | | | | [...] + + | 11/29/ | Hospital | [facility] | Thai Hamm | | | 2019 | Encounter | MED CTR OR INTRA OP | MD Evan [address] | | | | | [address] | [place] | | | | | [place] | [place] [address] | | | | | [address] | [phone] | | | | | [phone] | | | +--------+ + + + [...] symptoms, immediately call your eye doctor or [facility] [place] at (dial "9" after hours or on [...] | | | | SHEFALI JOY MD ([id number]) | | | | | | on [...] ESTRELLA. | [address] | [place] | [phone] | | [facility] | | [address] | | | - LABORATORY | | [...]
--- OUTSIDE RECORDS SUMMARY | ~2018-11-30 | XMS | Encounter Summary ---
Demographics + + + | Address | [address] | | | [place] [address] | + + + | Home Phone | | + + + | Preferred Language | Unknown | + + + | Marital Status | Single | + + + | Scientologist Affiliation | Unknown | + + + | Race | Unknown | + + + | Ethnic Group | Other Race | + + + Author + + + | Author | [facility] | + + + | Organization | [facility] | + + + | Address | Unknown | + + + | Phone | Unavailable | + + + Care Team Providers + +------+ + | Care Medicaid Plan Compliance Director Name | Role | Phone | + +------+ + PCP | Unavailable | + +------+ + Encounter Details +--------+ + + + + | Date | Type | Department | Care Team | Description | +--------+ + + + + | 10/23/ | Results | Registration 3181 | [facility] | | | 2008 | Only | [address] | [phone] | | | | | [facility] Mailcode: | | | | | | [address] [place], [place] | | | | | | [address] | | | | | | [phone] | | | +--------+ + + + [...] | | | | MNT) | IV [id number] | | | | | | DESCRIPTION:Excision, [...] + + | [facility] | Mailcode [address], [address] | [place] [address] | | | DERMATOPATHOLOGY | [address] | | | + + + + + documented in this encounter Visit Diagnoses Not on filedocumented in this encounter"
--- OUTSIDE RECORDS SUMMARY | ~2018-11-30 | XMS | Clinical Summary ---
Demographics + + + | Address | [address] | | | [place] [address] | + + + | Home Phone | | + + + | Preferred Language | Unknown | + + + | Marital Status | | + + + | Rastafarian Affiliation | Unknown | + + + | Race | Unknown | + + + | Ethnic Group | Unknown | + + + Author + + + | Author | [facility] | | | and [place] | + + + | Organization | [facility] | | | [...] Team Providers + +------+ + | Care Air Defence Officer Name | Role | Phone | + [...] Right: | PINON | | 10/25/ | [id number] | | 22.0 - [id number]: | c | Eye | MEDICAL | | 2021 | 0 | | Qty: 1 on 11/29/2018 by | | | [employer] - | | | /[id number] | | Thai Hamm MD | | | [place] | | | [address] | | | | | | | [...] | | | | SHEFALI JOY MD ([id number]) | | | | | | on [...] [address] | [place] | [phone] | | [facility] | | [address] | | | - LABORATORY | | [...] +--------+ +---------+--------+ | MEDICARE | MEDICA | [id number] | 10/17/19 | [phone] | | Medica | | | RE | | 08-Pre | 5 | | re | | | PART A | | sent | | | | | | AND B | | | | | | + +--------+ +--------+ +---------+--------+ | [employer] [place] | MUTUAL | [id number] | 11/16/19 | [phone] | | Indemn | | | OF | | 14-Pre | 0 | | ity | | | [place] | | sent | | | | [...] | 1941 | [phone] | [place] [address] | | | ana | | | 0 (Home) | | + +--------+ +--------+ + + Advance Directives Patient has advance care planning documents, and code status on file. For more information, please contact:[facility] and [place] [id number] + + + + + | Code Status | Date | Date | Comments | | | Activated | Inactivated | | + + + + + | Full Code | 11/29/2018 | 11/29/2018 | | | | 10:49 | 13:10 | | + + + + +
--- OUTSIDE RECORDS SUMMARY | ~2018-11-30 | XMS | Encounter Summary ---
Demographics + + + | Address | [address] | | | [place] [address] | + + + | Home Phone | | + + + | Preferred Language | Unknown | + + + | Marital Status | Single | + + + | Sabianism Affiliation | Unknown | + + + | Race | Unknown | + + + | Ethnic Group | Other Race | + + + Author + + + | Author | [facility] | + + + | Organization | [facility] | + + + | Address | Unknown | + + + | Phone | Unavailable | + + + Care Team Providers + +------+ + | Care Jet Engine Mechanic Name | Role | Phone | + +------+ + PCP | Unavailable | + +------+ + Encounter Details +--------+ + + + + | Date | Type | Department | Care Team | Description | +--------+ + + + + | 09/06/ | Results | Registration 3181 | Other Faculty | | | 2008 | Only | [address] | [phone] | | | | | [facility] Mailcode: | | | | | | [address] [place], [place] | | | | | | [address] | | | | | | [phone] | | | +--------+ + + + [...] | | | | | | [place] [id number] | | | | | | DESCRIPTION:4mm, [...] lateral | | | | | | margins.[facility]:emr09/11/08Ca | | | | | | se [...] is | | | | | | recommended.[facility]:db09/16/08 | | | | | | Case [...] BRITTNI | [address] | [place] [address] | | | DERMATOPATHOLOGY | [address] | | | + + + + + documented in this encounter Visit Diagnoses Not on filedocumented in this encounter"
--- OUTSIDE RECORDS SUMMARY | ~2018-11-30 | XMS | Encounter Summary ---
Demographics + + + | Address | [address] | | | [place] [address] | + + + | Home Phone | | + + + | Preferred Language | Unknown | + + + | Marital Status | | + + + | Gnosticist Affiliation | Unknown | + + + | Race | Unknown | + + + | Ethnic Group | Unknown | + + + Author + + + | Author | [facility] | | | and [place] | + + + | Organization | [facility] | | | [...] Team Providers + +------+ + | Care Piercing Artist Name | Role | Phone | + [...] | | | | age-related | | [address] | | | | | cataract of | | [place] | | | | | right eye | | [place] | | | | | [place] | | [address] Phone: | | | | | forms of | | [phone] | | | | | age-related | | Fax: | | | | | cataract of | | [phone] | | | | | right eye | | | | | | | [H25.811] | | | | | | | Procedures | | | | | | | [place] REMV | | | | | | [...] + + | 11/29/ | Anesthesia | [facility] | Misbah Waters | | | 2018 | Event | MED CTR OR INTRA OP | MD Nataly [address] | | | | | [address] | [address] [place] | | | | | [place] | [address] | | | | | [address] | | | | | | [phone] | | | +--------+ + + + + Anesthesia Record + + + + + | Procedure Name | Responsible | Anesthesia Start | Anesthesia Stop Time | | | Anesthesiologist | Time | | + + + + + | RIGHT EXTRACTION | Misbah Waters, | 11/29/18 1017 | 11/29/18 1038 | | CATARACT WITH LENS | MD | | | | IMPLANT (Right Eye) | | | | + + + + + +----+---+ + + | Da | T | Event | Comment | | te | i | | | | | m | | | | | e | | | +----+---+ + + | 05 | 0 | | | | /1 | 9 | | | | 5/ | 3 | | | | 20 | 9 | | | | 19 | | | | +----+---+ + + | | 0 | An Checkout | Pre-use anesthesia machine/equipment checkout. | | | 9 | | | | | 5 | | | | | 2 | | | +----+---+ + + | | 1 | An Start | Reassessment prior to anesthesia induction/procedure. | | | 0 | | | | | 1 | | | | | 7 | | | +----+---+ + + | | 1 | AN | Per surgeon request | | | 0 | Antibiotic | | | | 1 | declined | | | | 7 | | | +----+---+ + + | | 1 | Pre-Procedu | | | | 0 | ral Timeout | | | | 1 | Completed | | | | 9 | | | +----+---+ + + | | 1 | An | | | | 0 | Induction | | | | 1 | | | | | 9 | | | +----+---+ + + | | 1 | Breathing | | | | 0 | Spontaneous | | | | 1 | ly | | | | 9 | | | +----+---+ + + | | 1 | First | | | | 0 | Inc/Proc St | | | | 2 | | | | | 7 | | | +----+---+ + + | | 1 | An Stop | Patient handed off to recovery nurse. | | | 3 | | | | | 8 | | | +----+---+ + + | | 1 | an ghada now | EKG new onset A fib flutter with controlled vent. rate | | | 0 | | | | | 5 | | | | | 2 | | | +----+---+ + + +------+ | Meds | +------+ + +--------+ | Name | Total | + +--------+ | lidocaine 2% | 40 mg | + +--------+ | propofol | 50 mg | + +--------+ | lactated ringers (LR) infusion | 300 mL | + +--------+ + + | Name | + + | N2O Flow Rate (L/Min) | + + | O2 Flow Rate (L/Min) | + + | Insp O2 | + + | Air Flow Rate (L/Min) | + + + + | No blood administrations on file. | + + +--------+ + + + | Type | Details | Placement | Removal | +--------+ + + + | Wound | 11/29/18; 1023; Incision; Right; | 11/29/18 1023 by | | | | eye | Denise Vaz RN | | +--------+ + + + | Periph | 11/29/18; 0950; Right; | 11/29/18 0950 by | 11/29/18 1056 by | | eral | Antecubital; [id number] | Lynette Chavez, | Amanda Jimenez RN | | IV | catheter system; 20 gauge; 1; | RN | | | | distraction, intradermal | | | | | injection; no longer indicated, | | | | | removed per policy/procedure; | | | | | 11/29/18; 1056 | | | +--------+ + + + documented in this encounter Social History + + + +--------+ + [...] Not on filedocumented as of this encounter Visit Diagnoses Not on filedocumented in this encounter Administered Medications + +--------+ +-------+------+------+ | Medication Order | MAR | Action | Dose | Rate | Site | | | Action | Date | | | | + +--------+ +-------+------+------+ | lidocaine (PF) 2% injection | Given | 11/30/19 | 40 mg | | | | Intravenous, PRN, Starting Wed | | 19 10:21 | | | | | 11/29/18 at 1021, Anesthesia | | PDT | | | | | Intra-op | | | | | | + +--------+ +-------+------+------+ +---+---+ | | | +---+---+ + +-------+ +-------+---+---+ | propofol (DIPRIVAN) injection | Given | 11/30/19 | 50 mg | | | | Intravenous, PRN, Starting Wed | | 19 10:21 | | | | | 11/29/18 at 1021, Anesthesia | | PDT | | | | | Intra-op | | | | | | + +-------+ +-------+---+---+ +---+---+ | | | +---+---+ documented in this encounter"
--- OUTSIDE RECORDS SUMMARY | ~2018-11-30 | XMS | Encounter Summary ---
Demographics + + + | Address | [address] | | | [place] [address] | + + + | Home Phone | | + + + | Preferred Language | Unknown | + + + | Marital Status | | + + + | Sabianist Affiliation | Unknown | + + + | Race | Unknown | + + + | Ethnic Group | Unknown | + + + Author + + + | Author | [facility] | | | and [place] | + + + | Organization | [facility] | | | and [...] Team Providers + +------+ + | Care Firer Powerhouse Name | Role | Phone | + [...] | | | | age-related | | [address] | | | | | cataract of | | [place] | | | | | right eye | | [place] | | | | | [place] | | [address] Phone: | | | | | forms of | | [phone] | | | | | age-related | | Fax: | | | | | cataract of | | [phone] | | | | | right eye | | | | | | | [H25.811] | | | | | | | Procedures | | | | | | | [place] REMV | | | | | | [...] | | | | | [address] | [address] [place] | | | | | [place] | [address] | | | | | [address] | | | | | | [phone] | | | +--------+ + + + [...] 1056 by | | eral | Antecubital; [id number] | Lynette Chavez, | Amanda Jimenez RN [...]
[~2018-11-30 22:07] MED LIST: ASPIR-LOW81 MG PO; CEPHALEXIN500 MG PO; HYDROCHLOROTH12.5 MG PO; LIPITOR10 MG PO; LISINOPRIL2.5 MG PO; METFORMIN HCL500 M1 PO; MULTIVITAMINS1 EAC7 PO; OS-CAL 500+D TA1 TAB PO; OXYBUTYNIN CHLOR5 MG PO; PRESERVISION A1 EAC3 PO; PRILOSEC20 MG PO; VITAMIN D400 UNIT PO
[2018-11-30] MEDS ORDERED: ELIQUIS5 MG PO (22:21)
[2018-11-30] MEDS ORDERED: 24HOUR ALLERGY10 MG PO (22:22)
[2018-11-30] MEDS ORDERED: FLOMAX0.4 MG PO (22:22)
[2018-11-30] MEDS ORDERED: NORVASC5 MG PO (22:24)
[2018-11-30] MEDS ORDERED: LISINOPRIL-HCT1 EACH PO (22:24)
--- NOTE | 2018-12-01 17:31 | EKG ---
[facility] [address] [place], [place] [address] Signed Normal sinus rhythm ST \T\ T wave abnormality, consider inferior ischemia Abnormal ECG No previous ECGs available Confirmed by CORBY STEINER DO ([id number]) on 12/01/2018 5:31:40 PM Electronically Signed By: CORBY STEINER DO 12/01/18 1731 PATIENT NAME: DIO KEVIN OZZY Electrocardiogram DATE OF : 44 PHYSICIAN: CORBY STEINER DO REPORT #: [id number] REPORT IS CONFIDENTIAL AND NOT TO BE RELEASED WITHOUT AUTHORIZATION
== END 2018-12-01 00:55 | disposition short-term general hospital (02) ==
LOC: ED 22:07
DX: I21.4 Non-ST elevation (NSTEMI) myocardial infarction (principal); E11.9 Type 2 diabetes mellitus without complications; E78.5 Hyperlipidemia, unspecified; I10 Essential (primary) hypertension; I48.91 Unspecified atrial fibrillation; Z87.891 Personal history of nicotine dependence; Z90.710 Acquired absence of both cervix and uterus; Z88.1 Allergy status to other antibiotic agents; Z88.8 Allergy status to other drugs, medicaments and biological substances; Z79.84 Long term (current) use of oral hypoglycemic drugs; Z79.899 Other long term (current) drug therapy
CPT/HCPCS: 71045; 80053; 83735; 84484; 85025; 85610; 85730; 93005; 93010; 96374; 96375; 99285-25; J1644; J2270; J2405

== ENCOUNTER 2024-05-06 12:55 | Emergency (ER) | payer MEDICARE, OTHER ==
[~2024-05-06] VITALS: Ht 162.6 cm; Wt 62.5 kg
[~2024-05-06 12:55] MED LIST changes: +24HOUR ALLERGY10 MG PO; +ELIQUIS5 MG PO; +FLOMAX0.4 MG PO; +LISINOPRIL-HCT1 EACH PO; +NORVASC5 MG PO
[2024-05-06] MEDS ORDERED: LACTATED RINGER'S 1,000 ML IV ONE (13:15)
[2024-05-06 13:21] LABS: BASOPHILS 0.2 % (0-2); EOSINOPHILS 0.8 % (0-6); HEMATOCRIT 31.6 % (35.0-50.0); HEMOGLOBIN 10.4 g/dL (12.0-18.0); LYMPHOCYTES 20.2 % (24-44); MCH 26.6 (27-36); MCV 80.7 fl (81-99); MONOCYTES 8.4 % (0-12); NEUTROPHILS 70.4 % (39-80); PLATELET COUNT 116 K/uL (140-440); RBC 3.92 M/ul (4.3-5.7); RDW 15.8 (10.5-15.0)
[2024-05-06 13:33] LABS: ALBUMIN 3.8 g/dL (3.4-5.0); ALBUMIN/GLOBULIN RATIO 1.15 (1.1-2.4); ALCOHOL, MEDICAL <3 ng/dL (<3); ALKALINE PHOSPHATASE 71 U/L (46-116); ALT (SGPT) 20 U/L (14-59); ANION GAP 15.5 (7-21); AST (SGOT) 20 U/L (15-37); BUN/CREATININE RATIO 17.32 (6.0-28.6); CALCIUM 8.2 mg/dL (8.5-10.1); CARBON DIOXIDE 23 mmol/L (21-32); CHLORIDE 102 mmol/L (98-107); CREATININE, SERUM 1.27 mg/dL (0.55-1.02); GLOMERULAR FILTRATION RATE,EST 42 mL/min (>60); POTASSIUM 4.5 mmol/L (3.5-5.1); PROTEIN, TOTAL 7.1 g/dL (6.4-8.2); UREA NITROGEN 22 mg/dL (7-18)
[2024-05-06 13:48] LABS: BILIRUBIN, URINE NEGATIVE (negative); BLOOD/HGB, URINE SMALL (Negative); KETONE, URINE NEGATIVE (Negative); LEUK ESTERASE, URINE LARGE (negative); NITRITE, URINE NEGATIVE (negative); PH, URINE 6.5 (5-7)
[2024-05-06 13:52] LABS: ABO A; RH POSITIVE
[2024-05-06 13:53] LABS: ANTIBODY SCREEN NEGATIVE
[2024-05-06 14:07] LABS: EPITHELIAL CELLS, URINE 0 /lpf (0-1+)
[2024-05-06 14:08] LABS: BACTERIA, URINE 1+ /hpf (negative); CASTS, URINE NONE SEEN \\lpf; COLLECTION TYPE, URINE CLEAN CATCH; CRYSTALS, URINE NONE SEEN (0-1+); REFLEX CULTURE, URINE Yes (No); WHITE BLOOD CELLS, URINE >50 /HPF (0-5)
[2024-05-06 14:11] LABS: AMPHETAMINES, URINE NEGATIVE (NEGATIVE); BARBITURATES, URINE NEGATIVE (NEGATIVE); BENZODIAZEPINE, URINE NEGATIVE (NEGATIVE); BUPRENORPHINE, URINE NEGATIVE (NEGATIVE); CANNABINOID, URINE NEGATIVE (NEGATIVE); COCAINE, URINE NEGATIVE (NEGATIVE); ECSTASY, URINE NEGATIVE (NEGATIVE); FENTANYL, URINE NEGATIVE (NEGATIVE); METHADONE, URINE NEGATIVE (NEGATIVE); OPIATES, URINE NEGATIVE (NEGATIVE); OXYCODONE, URINE NEGATIVE (NEGATIVE); PHENCYCLIDINE, URINE NEGATIVE (NEGATIVE)
[2024-05-06] MEDS ORDERED: CEFDINIR 300 MG CAP PO ONE (16:00)
[2024-05-06] MEDS ORDERED: TRANEXAMIC ACID 1,000 MG/10 ML AMP TOP ONE (16:15)
[2024-05-06 20:48] VITALS: BP 145/52
[2024-05-06] MEDS ORDERED: CEFDINIR300 MG PO (20:57)
== END 2024-05-06 20:48 | disposition home or self-care (01) ==
LOC: ED 12:55
PROVIDERS: Emergency Medicine
DX: S00.81XA Abrasion of other part of head, initial encounter (principal); E11.9 Type 2 diabetes mellitus without complications; I10 Essential (primary) hypertension; Z87.891 Personal history of nicotine dependence; Z88.1 Allergy status to other antibiotic agents; Z88.8 Allergy status to other drugs, medicaments and biological substances; Z79.01 Long term (current) use of anticoagulants; Z79.84 Long term (current) use of oral hypoglycemic drugs; Z79.899 Other long term (current) drug therapy; W18.30XA Fall on same level, unspecified, initial encounter
CPT/HCPCS: 36415; 70450; 70486; 72125; 80053; 80307; 81001; 85025; 86850; 86900; 86901; 87088; 87186; 99283-25; G0480; J7121